=== PATIENT | male | born 1930 | race Caucasian/White ===

== ENCOUNTER 2020-01-16 09:00 | Day surgery (SDC) | payer MEDICARE ==
[~2020-01-16] VITALS: Ht 167.6 cm; Wt 55.3 kg
[~2020-01-16 09:00] MED LIST: B COMPLEX1 EACH PO; FLOVENT HFA10.6 GM INH; LISINOPRIL2.5 MG NG; TRUSOPT10 ML OPTH; VITAMIN C500 M1 PO
--- NOTE | 2020-01-16 11:04 | NUR ---
PT RESTING IN BED COMFORTABLY. DENIES ANY NEEDS AT THIS TIME, CALL LIGHT WITHIN REACH.
--- NOTE | 2020-01-16 11:56 | NUR ---
CORAL COBB FROM CONTACTED ME AND INFORMED ME THAT PT WOULD LIKE TO HAVE PRAYER BEFORE SURGERY. I FOUND PT TO BE ALERT, ORIENTED AND ENGAGING. PT IS LOOKING FORWARD TO BEING ABLE TO BREATH BETTER! QUESTIONS ASKED WERE ANSWERED. PT REQUESTED PRAYER, WILL FOLLOW NEEDED
--- NOTE | 2020-01-16 12:05 | NUR ---
PT FRIEND IN HOSPITAL PARKING AREA NOTIFIED OF PT GOING TO OPERATING ROOM PER REQUEST.
--- NOTE | 2020-01-16 13:55 | NUR ---
[id number]: PT BACK TO DS RM [address] CISNEROS IN PT RM GIVING PT INSTRUCTIONS. PT PROVIDED ICED WATER AND DC CRITERIA EXPLAINED. PT DENIES PAIN MEDICATION AND STATES "NOSE IS BURNING BUT NOT BAD ENOUGH TO TAKE MEDICATION." PT USES CALL LIGHT TO NOTIFY RN OF URGE TO VOID. PT UP TO BATHROOM WITH RN ASSIST, STEADY GAIT. ABLE TO VOID QS WITH NO PROBLEMS. BACK TO PT RM, PT HAS MANY QUESTIONS. PT EDUCATED ABOUT HOW TO CHANGE DRESSING AND CARE FOR SELF ONCE HOME, PROVIDED EXTRA GAUZE AND TAPE. DR. CISNEROS CALLED TO CLARIFY PT ORDERS, ANTIBIOTIC CALLED INTO TO PT PREFERRED PHARMACY. DC INSTRUCTIONS PRESENTED TO PT AND PT MADE AWARE OF PRESCRIPTION TO PHYSICAL CHEMISTRY PROFESSOR AT PHARMACY. PT FRIEND WAITING IN HOSPITAL PARKING AREA NOTIFIED OF PT STATUS. PT DC'S VIA WC TO FRIEND'S VEHICLE TO HOME.
[2020-01-16] MEDS ORDERED: CLEOCIN HCL300 MG PO (14:53)
--- NOTE | 2020-01-19 10:53 | OR ---
[facility] [address] [place] [place] [address] Signed DATE OF OPERATION: 01/16/2020 SURGEON: Parminder Cisneros MD PREOPERATIVE DIAGNOSIS: Deviated nasal septum with nasal obstruction. POSTOPERATIVE DIAGNOSIS: Deviated nasal septum with nasal obstruction. PROCEDURE PERFORMED: Nasal septoplasty, [address]. INDICATIONS: This 89-year-old gentleman a couple of puckett ago fell hard on the cement, striking his nose, broke it, but lost his nasal airway entirely on the right side and impinged it some on the left side. Examination showed a completely collapsed airway on the right side with a caudal dislocation into the left nostril and narrowing that as well. There is no remedy for this except surgery and possibly septal reconstruction. DESCRIPTION OF PROCEDURE: The patient was placed in the supine position, had no sedation, only local anesthesia, and was monitored by Anesthesia, who did give him some hydralazine for systolic blood pressure in the 190 vicinity. The patient's septum was injected with 1% lidocaine with 1:100,000 epinephrine starting at the caudal dislocation in the left nostril and then on the septum on the right side, trying to do hydrodissection in posttraumatic nose. A total of 5 mL of lidocaine were used during the procedure and about 2.5 or 3 mL of 0.5% Marcaine, 1:200,000 epinephrine. Cotton ball was placed on the right side to try and help the blood and secretion going down back of throat. He continued to breathe even without oxygen, just had a mask on. That was a COVID-19 mask. The incision was then made after routine prep and drape, and then nostril hairs trimmed with a 15 blade, right against the caudal edge of septum on the left side. The piece of cartilage was lying almost flat, transversely between the 2 nostrils, which obstructed or held the septum over on the right side. Very dense scar was encountered. It had to be dissected sharply as well as bluntly to isolate the dissection. That piece of cartilage had a tear in it, was lying over flat with fibrosis, so the mucosa or mucoperichondrium elevated on both sides. That piece was found to be entirely removed since it was not amenable to usual septoplasty techniques. It was placed in balanced salt solution, then more elevation of the cartilage was done on the right and the left. The tear continued up and some of the cartilage was held over there by an inferior piece of cartilage also PATIENT NAME: SHAYNE TOVAR OPERATIVE REPORT DATE OF : [birth year] REPORT #: [id number] PHYSICIAN: PARMINDER CISNEROS MD PCP: NO PRIMARY CARE PHYSICIAN REPORT IS CONFIDENTIAL AND NOT TO BE RELEASED WITHOUT AUTHORIZATION [facility] [address] [place], [place] [address] Signed almost from rest of cartilage, and form something of a spur, which was deviation of the maxillary crest. That piece of cartilage likewise was removed and then when the standing cartilage, the remainder a pie could be seen also, just naturally deviating to the right. It had 2 relaxing incisions made with a Jose L D knife, so that it would not do that. Another piece of cartilage was free grafted in along with the other piece of cartilage, which had been removed. It was turned around and placed back upside down or reverse and placed into the septum, so that it would straight again. Some clindamycin, which was given intravenously was also put into the flap that was wasted together with 4-0 gut and anterior incision was closed with 4-0 chromic. Estimated blood loss was 5 mL or so. The patient tolerated the procedure amazingly well, went directly back to Day Surgery and will be taken home. He will be maintained on clindamycin for several days. I will see him back in the office. Parminder Cisneros MD [facility] /[id number] Copies: ~ PATIENT NAME: SHAYNE TOVAR OPERATIVE REPORT DATE OF : [birth year] REPORT #: [id number] PHYSICIAN: PARMINDER CISNEROS MD PCP: NO PRIMARY CARE PHYSICIAN REPORT IS CONFIDENTIAL AND NOT TO BE RELEASED WITHOUT AUTHORIZATION
== END 2020-01-16 15:40 | disposition home or self-care (01) ==
LOC: OPS 09:00 → DS 09:00 → OPS 10:30
PROVIDERS: Otolaryngology
PROC: 09BM0ZZ Excision of Nasal Septum, Open Approach (ICD-10-PCS; principal; 2020-01-16 10:30)
DX: J34.2 Deviated nasal septum (principal); J45.909 Unspecified asthma, uncomplicated; I25.2 Old myocardial infarction; F41.8 Other specified anxiety disorders; K21.9 Gastro-esophageal reflux disease without esophagitis; Z79.899 Other long term (current) drug therapy; Z87.81 Personal history of (healed) traumatic fracture
CPT/HCPCS: 80053; 85025; J7121